=== PATIENT | female | born 1970 | race Caucasian/White ===

== ENCOUNTER 2018-01-02 11:58 | Outpatient (CLI) | payer BC | END 2018-01-02 11:59 | disposition home or self-care (01) | LOC: BICMAMMO 11:58 | PROVIDERS: ATTEND Family Medicine | DX: Z12.31 Encounter for screening mammogram for malignant neoplasm of breast (principal) | CPT/HCPCS: 77063; 77067 ==

== ENCOUNTER 2018-04-09 11:04 | Outpatient (CLI) | payer BC ==
--- NOTE | 2018-04-09 11:34 | RAD ---
RIGHT HIP TWO VIEWS: History: Right hip pain. FINDINGS: Degenerative changes are seen in the right hip joint manifested by osteophyte formation and joint spa ce narrowing. No fracture or dislocation or bony destruction is seen. IMPRESSION: Right hip osteoarthritis. POS: [facility]
== END 2018-04-09 11:05 | disposition home or self-care (01) ==
LOC: BICRAD 11:04
PROVIDERS: ATTEND Family Medicine
DX: M25.551 Pain in right hip (principal); M16.11 Unilateral primary osteoarthritis, right hip